=== PATIENT | male | born 1995 | race African-American/Black ===

== ENCOUNTER 2017-04-24 09:58 | Emergency (ER) | payer SELFPAY ==
--- NOTE | 2017-04-24 11:23 | UC ---
Throat Pain/Nasal Mark HPI - HPI Summary HPI Summary: [address], PAIN WITH SWALLOWING, CHILLS AND BODY ACHES. NO FEVER. GF IS BEING TESTED FOR MONO ALL HER ROOMMATES HAVE IT. - History of Current Complaint Chief Complaint: UCRespiratory Stated Complaint: THROAT COMPLAINT Time Seen by Provider: 04/24/17 10:50 Hx Obtained From: Patient Onset/Duration: Gradual Onset, Lasting Days, Still Present Severity: Moderate Pain Intensity: 4 Pain Scale Used: 0-10 Numeric Cough: Nonproductive Associated Signs & Symptoms: Negative: Fever, Vomiting - Allergies/Home Medications Allergies/Adverse Reactions: Allergies Allergy/AdvReac Type Severity Reaction Status Date / Time No Known Allergies Allergy Verified 04/24/17 10:36 Home Medications: Home Medications Cetirizine* [ZyrTEC 10 MG TAB*] 04/24/17 [History] PMH/Surg Hx/FS Hx/Imm Hx Previously Healthy: Yes - Surgical History Surgical History: Yes Surgery Procedure, Year, and Place: adnoids removed - Family History Known Family History: Positive: Hypertension - Social History Alcohol Use: None Substance Use Type: None Smoking Status (MU): Never Smoked Tobacco Review of Systems Constitutional: Chills, Fatigue ENT: Sore Throat Respiratory: Cough Cardiovascular: Negative Gastrointestinal: Negative Musculoskeletal: Myalgia All Other Systems Reviewed And Are Negative: Yes Physical Exam Triage Information Reviewed: Yes Appearance: Well-Appearing, No Pain Distress, Well-Nourished Vital Signs: Initial Vital Signs Temp 98.3 F 04/24/17 10:38 Pulse 63 04/24/17 10:38 Resp 16 04/24/17 10:38 Pulse Ox 100 04/24/17 10:38 Vital Signs Reviewed: Yes Eyes: Positive: Conjunctiva Clear ENT: Positive: Hearing grossly normal, Pharynx normal, TMs normal Neck: Positive: Supple, Nontender, No Lymphadenopathy Respiratory Exam: Normal Cardiovascular Exam: Normal Abdomen Description: Positive: Soft Musculoskeletal: Positive: No Edema Neurological: Positive: Alert Psychological: Positive: Age Appropriate Behavior Skin: Negative: rashes Throat Pain/Nasal Course/Dx - Differential Dx/Diagnosis Provider Diagnoses: ACUTE PHARYNGITIS Discharge - Discharge Plan Condition: Stable Disposition: HOME Patient Education Materials: Upper Respiratory Infection (ED) Additional Instructions: YOUR EXAM TODAY IS NOT CONSISTENT WITH STREP OR MONO. IF YOU HAVE MONO IT IS POSSIBLE THAT YOU MAY DEVELOP SYMPTOMS MORE CONSISTENT WITH THIS OVER THE NEXT WEEK OR SO. EARLY TESTING OFTEN GIVES FALSE NEGATIVE RESULTS SO WOULD NOT RECOMMEND TESTING TODAY. REST, HYDRATE, OTC MEDS NEEDED. AVOID CONTACT SPORTS IF YOU THINK YOU HAVE MONO. FOLLOW-UP HERE OR WITH [facility] IF YOU ARE NOT IMPROVING EXPECTED.
== END 2017-04-24 11:18 | disposition home or self-care (01) ==
LOC: UCEAST 09:58
DX: J02.9 Acute pharyngitis, unspecified (principal)
CPT/HCPCS: 99201; G0463